=== PATIENT | female | born 1950 ===

== ENCOUNTER 2020-01-15 11:41 | Emergency (ER) | payer OTHER ==
[~2020-01-15] VITALS: Ht 165.1 cm; Wt 76.2 kg
[2020-01-15] MEDS ORDERED: METFORMIN HCL500 M3 (12:09)
[2020-01-15] MEDS ORDERED: HYZAAR 100-12.1 EACH (12:10)
[2020-01-15] MEDS ORDERED: TOPROL XL25 M1 (12:10)
[2020-01-15] MEDS ORDERED: ASPIR 8181 MG (12:11)
== END 2020-01-15 18:39 | disposition home or self-care (01) ==
LOC: ER 11:41
DX: S22.42XA Multiple fractures of ribs, left side, initial encounter for closed fracture (principal); W18.39XA Other fall on same level, initial encounter; Y93.89 Activity, other specified; Y92.89 Other specified places as the place of occurrence of the external cause; Y99.8 Other external cause status